=== PATIENT | female | born 1990 | race Caucasian/White ===

== ENCOUNTER 2020-12-26 14:55 | Outpatient (CLI) | payer BC | END 2020-12-26 14:56 | disposition home or self-care (01) | LOC: BICULT 14:55 | PROVIDERS: ATTEND Obstetrics & Gynecology | DX: N63.20 Unspecified lump in the left breast, unspecified quadrant (principal) ==

== ENCOUNTER 2022-02-11 15:42 | Outpatient (CLI) | payer BC | END 2022-02-11 15:43 | disposition home or self-care (01) | LOC: BICULT 15:42 | PROVIDERS: ATTEND Obstetrics & Gynecology | DX: N63.10 Unspecified lump in the right breast, unspecified quadrant (principal); N64.4 Mastodynia; N64.89 Other specified disorders of breast ==